=== PATIENT | male | born 1960 | race Caucasian/White ===

== ENCOUNTER 2016-09-27 17:11 | Emergency (ER) | payer SELFPAY ==
[2016-09-27 17:39] LABS: HEMOGLOBIN 10.9 gm/dl (14.0-17.5); RED BLOOD COUNT 4.13 M/UL (4.20-5.50); WHITE BLOOD COUNT 12.5 K/UL (4.5-11.0)
[2016-09-27 18:03] LABS: BUN/CREATININE RATIO 44 (0-10)
== END 2016-09-27 21:50 | disposition home or self-care (01) ==
LOC: ER1 17:11
PROVIDERS: Family Medicine
DX: K92.2 Gastrointestinal hemorrhage, unspecified (principal); R55 Syncope and collapse; R07.9 Chest pain, unspecified; F17.200 Nicotine dependence, unspecified, uncomplicated
CPT/HCPCS: 36415; 70450; 71010; 80053; 80307; 81001; 82272; 82550; 82553; 83690; 83874; 84484; 85025; 85610; 85730; 86850; 86900; 86901; 86920; 87086; 93005; 96374; 99285; C9113; G0480; J7050; Q9962